=== PATIENT | male | born 1970 | race Caucasian/White ===

== ENCOUNTER → 2017-06-16 | Outpatient (CLI) | payer OTHER ==
--- NOTE | 2017-06-16 11:13 | DIAGNOSTIC IMAGING REPORT ---
RIGHT SHOULDER MIN 2 VIEWS ROUTINE CLINICAL HISTORY: SHOULDER PAIN Right pain COMPARISON: None. DISCUSSION: Mild degenerative change glenohumeral joint. Mild peripheral osteophytic reaction of the humeral head. Minimal degenerative change acromioclavicular joint. No abnormal soft tissue calcifications. Small degenerative cyst deep to the supraspinatus tendon insertion lateral aspect humeral head. There is no evidence for soft tissue swelling. IMPRESSION: Mild degenerative change. No acute process. The above report was generated using voice recognition software. It may contain grammatical, syntax or spelling errors. Electronically signed by: Reuben Lopez M.D. 06/16/2017 11:12 AM Dictated Date/Time: 06/16/2017 11:11 AM
--- NOTE | 2017-06-16 11:17 | DIAGNOSTIC IMAGING REPORT ---
RIGHT HIP UNILATERAL 2 VIEWS CLINICAL HISTORY: HIP PAIN Right pain COMPARISON: None. DISCUSSION: Wires bony exostosis lateral margin of the right iliac weighing. This is a benign finding. Mild/moderate degenerative change right hip. No evidence for acetabular protrusion. There is no evidence for soft tissue swelling. IMPRESSION: 1. Mild/moderate degenerative change right hip. 2. No acute bony abnormality. 3. Prominent bony exostosis projecting laterally from the iliac wing. This is a benign nonneoplastic finding. The above report was generated using voice recognition software. It may contain grammatical, syntax or spelling errors. Electronically signed by: Reuben Lopez M.D. 06/16/2017 11:16 AM Dictated Date/Time: 06/16/2017 11:15 AM
[2017-06-16 17:25] LABS: BASO % 0.7 %; BASO ABS # 0.04 K/uL (0-0.2); COMPLETE YES; EOS % 1.9 %; HEMATOCRIT 45.5 % (42-52); IG% 0.2 %; LYMPH ABS # 2.32 K/uL (1.2-3.4); MEAN CELL VOLUME 94.4 fL (80-100); MEAN CORPUSCULAR HGB CONC 33.8 g/dl (32-36); MEAN PLATELET VOLUME 9.6 fL (7.4-10.4); MONO % 4.4 %; NEUT % 49.8 %; PLATELET COUNT 256 K/uL (130-400); RED BLOOD COUNT 4.82 M/uL (4.7-6.1)
[2017-06-16 18:15] LABS: ALT/SGPT 33 U/L (12-78); AST/SGOT 23 U/L (15-37); BLOOD UREA NITROGEN 19 mg/dl (7-18); BUN/CREATININE RATIO 18.9 (10-20); CALCIUM 9.3 mg/dl (8.5-10.1); CARBON DIOXIDE 28 mmol/L (21-32); CHLORIDE 107 mmol/L (98-107); GLUCOSE 85 mg/dl (70-99); POTASSIUM 4.4 mmol/L (3.5-5.1); SODIUM 139 mmol/L (136-145)
[2017-06-16 18:17] LABS: ALB/GLOB RATIO 1.1 (0.9-2); ALKALINE PHOSPHATASE 97 U/L (45-117); C-REACTIVE PROTEIN 0.45 mg/dl (0-0.29); CHOLESTEROL 214 mg/dl (0-200); CHOLESTEROL/HDL RATIO 4.1; HDL CHOLESTEROL 52 mg/dl; LDL CHOLESTEROL CALCULATED 138 mg/dl; RHEUMATOID FACTOR < 10.0 U/mL (0-15); TRIGLYCERIDES 120 mg/dl (0-150); VERY LOW DENSITY LIPOPROT CALC 24 mg/dl
[2017-06-16 18:24] LABS: LYME DISEASE AB IGG NEG (NEG); LYME DISEASE AB IGM NEG (NEG)
[2017-06-17 08:20] LABS: ESTIMATED AVERAGE GLUCOSE 111 mg/dl; HA1C FLAG Normal (Normal)
== END | disposition home or self-care (01) ==
LOC: C.RADPV 10:44
PROVIDERS: ATTEND Neuromusculoskeletal Medicine & OMM
DX: Z00.00 Encounter for general adult medical examination without abnormal findings (principal); M25.511 Pain in right shoulder; I10 Essential (primary) hypertension; L40.9 Psoriasis, unspecified; M25.851 Other specified joint disorders, right hip

== ENCOUNTER → 2018-05-24 | Outpatient (CLI) | payer OTHER ==
--- NOTE | 2018-05-24 10:59 | DIAGNOSTIC IMAGING REPORT ---
RIGHT KNEE 2 VIEWS HISTORY: M25.561 Right knee [id number] COMPARISON: None. FINDINGS: There is no fracture or dislocation. Soft tissues are unremarkable. No radiopaque foreign bodies. No knee effusion. Cartilage spaces are maintained. IMPRESSION: Unremarkable right knee. Electronically signed by: Warren Elizondo M.D. 05/24/2018 10:58 AM Dictated Date/Time: 05/24/2018 10:55 AM
== END | disposition home or self-care (01) ==
LOC: C.RAD 10:28
PROVIDERS: ATTEND Neuromusculoskeletal Medicine & OMM
DX: M25.561 Pain in right knee (principal)